=== PATIENT | male | born 1955 | race Two or more races ===

== ENCOUNTER 2024-07-11 11:07 | Inpatient (IN) | payer OTHER ==
[~2024-07-11] VITALS: Ht 154.9 cm; Wt 68.0 kg
--- NOTE | 2024-07-11 11:21 | NUR ---
SE RECIBE PTE EN AMBULANCIA EL MISMO DE CRUCERO, DR BARNES ACEPTA EL NORA. PTE CON INFLUENZA B Y NEUMONIA SATURANDO 94%, SE REALIZA EKG Y SE PRESENTA A DR BARNES EL CUAL REFIERE COLOCARLO EN AREA DE CRITICO. SE ENTREGA NORA A ANTHONY TRONCOSO.
--- NOTE | 2024-07-11 12:30 | NUR ---
SE RECIBE PACIENTE EN TABITHA POR PARAMEDICOS EN COMPANIA DE FAMILIAR CON MASCARILLA SIMPLE A 5 LITROS. RR-26, SAT-93%. SE COLOCA EN CUBICULO 1 EN CAMA POSICION SEMISENTADA, BARANDAS ELEVADAS Y TIMBRE ASCESIBLE. SE COLOCA MONITOR CARDIACO Y SATUROMETRO DE PULSO. SE REALIZAN MUESTRAS EN MAL, CULTIVOS Y ABG,S. SE COLOCA VENTURY MASK AL 35%.
[2024-07-11 12:32] LABS: ABG PH 7.422 (7.35-7.45); ABG pCO2 34.3 mmHg (35-45)
[2024-07-11 12:33] LABS: ABG PO2 56.9 mmHg (80-100); BASE EXCESS -1.8 mmol/l; BICARBONATE 21.9 mmol/l (23-25); SaO2 89.7 %; Tco2 22.9 mmol/l; allen test SATISFACTORY; o2 21 %; puncture site RADIAL LEFT
[2024-07-11 12:37] LABS: HEMATOCRIT 43.8 % (39.0-48.0); HEMOGLOBIN 14.7 g/dL (13-16.00); MEAN CORPUSCULAR HEMOGLOBIN 32.4 pg (27.00-32.0); MEAN CORPUSCULAR HGB CONC 33.5 g/dl (32.0-36.0); PLATELET COUNT 188 K/uL (150-450); RED BLOOD COUNT 4.52 M/uL (4.00-6.00); RED CELL DISTRIBUTION WIDTH 13.6 % (11.5-14.5)
[2024-07-11 13:00] LABS: CALCIUM 7.7 mg/dL (8.5-10.1); CREATININE SERUM 1.07 mg/dL (0.70-1.30); GFR 68.32; POTASSIUM 3.41 mEq/L (3.5-5.1)
[2024-07-11 13:04] LABS: C-REACTIVE PROTEIN 17.1 MG/DL (0.00-0.29)
--- NOTE | 2024-07-11 15:30 | NUR ---
SE RECIBE A PACIENTE ALERTA Y ORIENTADO X3 CONECTADO A MONITOR CARDIACO Y OXIMETRIA CONTINUA, SIGNOS VITALES EN MONITOR: BP 116/69 (88), HR 98LT/MIN, SPO2 100%, RR 21. PACIENTE CON VENTURY MASK AL 35%, TOLERANDO LA MISMA. CANALIZADO CON #20 Y #18 EN LT ARM, PATENTES, LIBRES DE PROCESO DE INFECCION Y BAJANDO 0.9NSS KVO. EXTREMIDADES SUPERIORES SE OBSERVAN LIBRES DE EDEMA Y ERITEMA. ABDOMEN NO DISTENDIDO, DEPRESIBLE, THOMAS DE DOLOR A LA PALPACION Y CON PERISTALSIS PRESENTE. PACIENTE ORINA DE MANERA ESPONTANEA EN URINAL. EXTREMIDADES INFERIORES SE OBSERVAN LIBRES DE EDEMA Y ERITEMA. PACIENTE PENDIENTE A CONSULTA CON DR. NOEMI [place] [facility].
[2024-07-11 18:00] VITALS: BP 105/55; O2SAT 95
--- NOTE | 2024-07-11 18:17 | NUR ---
SE COLOCA TUBO NGT #16 EN FOSA RT Y SE CONECTA A SUCCION CONTINUA.
[2024-07-11] MEDS ORDERED: 0.9 % SODIUM CHLORIDE 1,000 ML IV SCH (18:30)
[2024-07-11] MEDS ORDERED: levoFLOXacin IN DEXTROSE 5 % 150 ML IV SCH (18:34)
[2024-07-11] MEDS ORDERED: METRONIDAZOLE/SODIUM CHLORIDE 100 ML IV SCH (18:35)
[2024-07-11] MEDS ORDERED: ACETAMINOPHEN 500 MG GEL..CAP PO PRN (18:45)
[2024-07-11] MEDS ORDERED: METHYLPREDNISOLONE SOD SUCC 125 MG VIAL IV ONE (18:45)
[2024-07-11] MEDS ORDERED: MORPHINE SULFATE 2 MG/ML CARTRIDGE IV PRN (18:45)
[2024-07-11 19:00] VITALS: BP 116/63; O2SAT 97
[2024-07-11] MEDS ORDERED: METHYLPREDNISOLONE SOD SUCC 125 MG VIAL ONE (19:30)
[2024-07-11] MEDS ORDERED: METRONIDAZOLE/SODIUM CHLORIDE 500 MG/100 ML PIGGYBACK IV ONE (19:30)
[2024-07-11 20:00] VITALS: BP 129/62; O2SAT 97
[2024-07-11] MEDS ORDERED: IPRATROPIUM BROMIDE 0.5 MG/2.5 ML AMPUL.NEB IH SCH (20:00)
[2024-07-11] MEDS ORDERED: LEVALBUTEROL HCL 1.25 MG/3 ML SOLUTION IH SCH (20:00)
[2024-07-11 21:00] VITALS: BP 107/60; O2SAT 96
[2024-07-11] MEDS ORDERED: POTASSIUM CHLORIDE 20MEQ/100ML H2O PB IV ONE (21:30)
[2024-07-11] MEDS ORDERED: LEVALBUTEROL HCL 0.63 MG/3 ML SOLUTION IH ONE (21:31)
[2024-07-11] MEDS ORDERED: IPRATROPIUM BROMIDE 0.5 MG/2.5 ML AMPUL.NEB IH ONE (21:31)
[2024-07-11 21:35] LABS: INR 1.05; PARTIAL THROMBOPLASTIN TIME 32.5 SECONDS (22.0-34.0); PROTHROMBIN TIME 11.4 SECONDS (9.0-11.5)
[2024-07-11 21:46] LABS: C-REACTIVE PROTEIN 23.8 MG/DL (0.00-0.29); MAGNESIUM 2.6 mg/dL (1.8-2.4)
[2024-07-11 22:00] VITALS: BP 116/63; O2SAT 99
[2024-07-11 23:30] VITALS: BP 111/67; O2SAT 99
[2024-07-12] VITALS (13 sets, daily range): BP systolic 111–134; BP diastolic 60–76; O2SAT 94–100
[2024-07-12] MEDS ORDERED: METRONIDAZOLE/SODIUM CHLORIDE 500 MG/100 ML PIGGYBACK IV ONE (01:42)
[2024-07-12] MEDS ORDERED: LEVOTHYROXINE SODIUM 137 MCG TABLET PO SCH (06:00)
[2024-07-12] MEDS ORDERED: VANCOMYCIN HCL 5 MG/ML REDILUIDO IV SCH (09:00)
[2024-07-12] MEDS ORDERED: POTASSIUM CHLORIDE IN WATER 40 MEQ/100 ML PIGGYBAG IV NR (09:00)
[2024-07-12] MEDS ORDERED: PANTOPRAZOLE SODIUM 80 MG in 0.9 % SODIUM CHLORIDE 100 ML IV SCH (09:00)
[2024-07-12] MEDS ORDERED: BUDESONIDE 0.5 MG/2 ML AMPUL.NEB IH SCH (09:00)
[2024-07-12] MEDS ORDERED: TAMSULOSIN HCL 0.4 MG CAP PO SCH (09:00)
[2024-07-12] MEDS ORDERED: ENOXAPARIN SODIUM 40 MG/0.4 ML SYRINGE SUBCUTANEO SCH (09:00)
[2024-07-12] MEDS ORDERED: PANTOPRAZOLE SODIUM 40 MG/VIAL VIAL IV SCH (09:00)
[2024-07-12] MEDS ORDERED: LEVOTHYROXINE SODIUM 100MCG/ML REDILUIDO IV NR (10:30)
[2024-07-12 10:59] LABS: ABG PH 7.441 (7.35-7.45); ABG PO2 61.9 mmHg (80-100); ABG pCO2 34.1 mmHg (35-45); BASE EXCESS -0.7 mmol/l; BICARBONATE 22.7 mmol/l (23-25); SaO2 92.3 %; Tco2 23.8 mmol/l; puncture site RADIAL RIGHT
[2024-07-12 11:00] LABS: allen test SATISFACTORY; o2 35 %
[2024-07-12] MEDS ORDERED: MEROPENEM 500 MG/VIAL VIAL IV SCH (12:00)
[2024-07-12] MEDS ORDERED: POTASSIUM CHLORIDE/D5-0.9%NACL 20 MEQ/1,000 ML PIGGYBAG IV SCH (13:00)
[2024-07-12 14:23] LABS: AMYLASE 41 U/L (25-115); LIPASE 18 U/L (13-75)
[2024-07-12] MEDS ORDERED: LEVOTHYROXINE SODIUM 100MCG/ML REDILUIDO IV SCH (17:00)
[2024-07-12] MEDS ORDERED: BACLOFEN 10 MG TABLET PO SCH (17:00)
[2024-07-12] MEDS ORDERED: VANCOMYCIN HCL 1,000 MG VIAL ONE (20:08)
[2024-07-12] MEDS ORDERED: VANCOMYCIN HCL 1,000 MG VIAL IV SCH (21:00)
[2024-07-13 03:56] VITALS: BP 1125/72; O2SAT 100
[2024-07-13 07:03] VITALS: BP 139/68; O2SAT 100
[2024-07-13 07:45] LABS: HEMATOCRIT 38.4 % (39.0-48.0); HEMOGLOBIN 13.2 g/dL (13-16.00); MEAN CELL VOLUME 95.5 fL (80.0-100.00); MEAN CORPUSCULAR HEMOGLOBIN 32.8 pg (27.00-32.0); MEAN CORPUSCULAR HGB CONC 34.4 g/dl (32.0-36.0); PLATELET COUNT 152 K/uL (150-450); RED BLOOD COUNT 4.03 M/uL (4.00-6.00)
[2024-07-13 07:48] LABS: PH,URINE 5.5 (5.0-8.0); URINE APPEARANCE Clear; URINE BILIRRUBIN Negative (NEGATIVE); URINE BLOOD Negative; URINE COLOR Dark Yellow; URINE GLUCOSE Negative (NEGATIVE); URINE KETONE Negative (NEGATIVE); URINE LEUKOCYTE Trace; URINE NITRATE Negative
[2024-07-13 07:51] LABS: URINE BACTERIA 18.3 uL (0.0-1933); URINE EPITHELIAL CELLS 27.2 uL (0.0-38.8); URINE RBC 83.3 uL (0.0-20.8)
[2024-07-13 08:09] LABS: URINE CAST 1.17 uL (0.0-1.40); URINE PROTEIN 100 (NEGATIVE)
[2024-07-13] MEDS ORDERED: VANCOMYCIN HCL 1,000 MG VIAL ONE ×2 (08:09→20:37)
[2024-07-13 08:51] LABS: MAGNESIUM 2.6 mg/dL (1.8-2.4)
[2024-07-13 08:52] LABS: ALBUMIN 2.3 gm/dL (3.4-5.0); BILIRUBIN TOTAL 0.63 mg/dL (0.3-1.2); CALCIUM 7.8 mg/dL (8.5-10.1); CREATININE SERUM 0.59 mg/dL (0.70-1.30); GFR 135.8; GLOBULINA 2.9 G/DL (2.4-3.5); TOTAL PROTEIN 5.2 gm/dL (6.4-8.2)
[2024-07-13 08:55] LABS: POTASSIUM 5.37 mEq/L (3.5-5.1)
[2024-07-13] MEDS ORDERED: LEVOTHYROXINE SODIUM 100MCG/ML REDILUIDO IV SCH (09:00)
[2024-07-13] MEDS ORDERED: CHLORHEXIDINE GLUCONATE 120 ML BOTTLE TOP ONE (09:25)
[2024-07-13 09:39] LABS: C-REACTIVE PROTEIN 16.2 MG/DL (0.00-0.29)
[2024-07-13 09:40] LABS: PHOSPHOROUS 1.8 mg/dL (2.5-4.9)
[2024-07-13] MEDS ORDERED: POTASSIUM PHOS,M-BASIC-D-BASIC 3 MM/ML VIAL IV NR (10:30)
[2024-07-13] MEDS ORDERED: POTASSIUM PHOS,M-BASIC-D-BASIC 3 MM/ML VIAL IV ONE (10:30)
[2024-07-13] MEDS ORDERED: DEXTROSE 5 %-0.45 % SOD CHLORD 1,000 ML IV SCH (11:15)
[2024-07-13 12:00] VITALS: BP 114/63; O2SAT 100
[2024-07-13 16:02] VITALS: BP 117/64; O2SAT 100
[2024-07-13 20:00] VITALS: BP 131/78; O2SAT 100
[2024-07-13 23:05] VITALS: BP 131/74; O2SAT 100
[2024-07-14 04:16] VITALS: BP 101/80; O2SAT 100
[2024-07-14 07:04] VITALS: BP 132/71; O2SAT 100
[2024-07-14] MEDS ORDERED: VANCOMYCIN HCL 1,000 MG VIAL ONE ×2 (07:39→19:46)
[2024-07-14 08:24] LABS: ALBUMIN 2.3 gm/dL (3.4-5.0); BILIRUBIN TOTAL 0.72 mg/dL (0.3-1.2); CALCIUM 7.4 mg/dL (8.5-10.1); CREATININE SERUM 0.5 mg/dL (0.70-1.30); GFR 164.38; GLOBULINA 2.2 G/DL (2.4-3.5); POTASSIUM 4.17 mEq/L (3.5-5.1); TOTAL PROTEIN 4.5 gm/dL (6.4-8.2)
[2024-07-14 09:01] LABS: HEMATOCRIT 36.1 % (39.0-48.0); HEMOGLOBIN 12.4 g/dL (13-16.00); MEAN CORPUSCULAR HEMOGLOBIN 32.7 pg (27.00-32.0); MEAN CORPUSCULAR HGB CONC 34.4 g/dl (32.0-36.0); PLATELET COUNT 141 K/uL (150-450); RED CELL DISTRIBUTION WIDTH 13.7 % (11.5-14.5)
[2024-07-14 12:00] VITALS: BP 124/77; O2SAT 100
[2024-07-14] MEDS ORDERED: MINERAL OIL 133 ML ENEMA RECTAL ONE ×2 (12:45)
[2024-07-14 15:30] VITALS: BP 113/65; O2SAT 100
[2024-07-14] MEDS ORDERED: PANTOPRAZOLE SODIUM 40 MG TABLET.DR PO SCH (21:00)
[2024-07-14] MEDS ORDERED: GABAPENTIN 300 MG CAPSULE PO SCH (21:00)
[2024-07-14 21:19] VITALS: BP 112/68; O2SAT 100
[2024-07-14 23:00] VITALS: BP 117/73; O2SAT 100
[2024-07-15] VITALS (8 sets, daily range): BP systolic 97–142; BP diastolic 55–81; O2SAT 96–100
[2024-07-15] MEDS ORDERED: VANCOMYCIN HCL 1,000 MG VIAL ONE (09:27)
[2024-07-15 10:08] LABS: ABG PH 7.441 (7.35-7.45); ABG pCO2 36.5 mmHg (35-45); BASE EXCESS 0.5 mmol/l; BICARBONATE 24.3 mmol/l (23-25); SaO2 96.2 %; Tco2 25.4 mmol/l; allen test SATISFACTORY; puncture site RADIAL LEFT
[2024-07-15 10:09] LABS: o2 32 %
[2024-07-15] MEDS ORDERED: DEXTROSE 5 %-0.45 % SOD CHLORD 1,000 ML IV SCH (11:15)
[2024-07-15 11:44] LABS: CALCIUM 7.9 mg/dL (8.5-10.1); CREATININE SERUM 0.55 mg/dL (0.70-1.30); GFR 147.26; POTASSIUM 3.87 mEq/L (3.5-5.1)
[2024-07-15] MEDS ORDERED: KETOROLAC TROMETHAMINE 30 MG VIAL IV PRN (16:00)
[2024-07-15] MEDS ORDERED: VANCOMYCIN HCL 5 MG/ML REDILUIDO IV SCH (21:00)
[2024-07-16] VITALS (9 sets, daily range): BP systolic 105–135; BP diastolic 62–63; O2SAT 90–99
[2024-07-16] MEDS ORDERED: MINERAL OIL 133 ML ENEMA RECTAL SCH ×2 (09:00)
[2024-07-17] VITALS (8 sets, daily range): BP systolic 113–133; BP diastolic 68–77; O2SAT 90–98
== END 2024-07-17 21:04 | disposition home or self-care (01) | DRG 166 ==
LOC: ER 11:07 → MEDJ 19:57 → ICU-2 19:57 → ICU 07-12 18:14 → MEDJ 07-15 13:46
PROVIDERS: Emergency Medicine; General Practice; Internal Medicine Infectious Disease; ADMIT Internal Medicine; ATTEND Internal Medicine
PROC: 0D9670Z Drainage of Stomach with Drainage Device, Via Natural or Artificial Opening (ICD-10-PCS; 2024-07-11)
PROC: BW21ZZZ Computerized Tomography (CT Scan) of Abdomen and Pelvis (ICD-10-PCS; 2024-07-11)
PROC: BB24ZZZ Computerized Tomography (CT Scan) of Bilateral Lungs (ICD-10-PCS; 2024-07-11)
PROC: 3E0F7GC Introduction of Other Therapeutic Substance into Respiratory Tract, Via Natural or Artificial Opening (ICD-10-PCS; 2024-07-11)
PROC: 5A09457 Assistance with Respiratory Ventilation, 24-96 Consecutive Hours, Continuous Positive Airway Pressure (ICD-10-PCS; 2024-07-11)
PROC: 4A12X4Z Monitoring of Cardiac Electrical Activity, External Approach (ICD-10-PCS; 2024-07-11)
PROC: 0JBQ0ZZ Excision of Right Foot Subcutaneous Tissue and Fascia, Open Approach (ICD-10-PCS; principal; 2024-07-12)
PROC: B44HZZZ Ultrasonography of Bilateral Lower Extremity Arteries (ICD-10-PCS; 2024-07-12)
PROC: B246ZZZ Ultrasonography of Right and Left Heart (ICD-10-PCS; 2024-07-12)
PROC: 02HV33Z Insertion of Infusion Device into Superior Vena Cava, Percutaneous Approach (ICD-10-PCS; 2024-07-12)
PROC: 3E04329 Introduction of Other Anti-infective into Central Vein, Percutaneous Approach (ICD-10-PCS; 2024-07-12)
PROC: BB24ZZZ Computerized Tomography (CT Scan) of Bilateral Lungs (ICD-10-PCS; 2024-07-13)
DX: J69.0 Pneumonitis due to inhalation of food and vomit (principal); A41.9 Sepsis, unspecified organism; J80 Acute respiratory distress syndrome; K56.609 Unspecified intestinal obstruction, unspecified as to partial versus complete obstruction; K56.7 Ileus, unspecified; D84.9 Immunodeficiency, unspecified; E87.4 Mixed disorder of acid-base balance; L02.611 Cutaneous abscess of right foot; J90 Pleural effusion, not elsewhere classified; J98.11 Atelectasis; L89.892 Pressure ulcer of other site, stage 2; K59.09 Other constipation; K40.90 Unilateral inguinal hernia, without obstruction or gangrene, not specified as recurrent; J06.9 Acute upper respiratory infection, unspecified; E83.39 Other disorders of phosphorus metabolism; E86.0 Dehydration; G35 Multiple sclerosis; G62.9 Polyneuropathy, unspecified; E03.9 Hypothyroidism, unspecified; N40.0 Benign prostatic hyperplasia without lower urinary tract symptoms; Z74.01 Bed confinement status; B96.20 Unspecified Escherichia coli [E. coli] as the cause of diseases classified elsewhere; B96.6 Bacteroides fragilis [B. fragilis] as the cause of diseases classified elsewhere